=== PATIENT | male | born 1935 | race Caucasian/White ===

== ENCOUNTER 2016-09-25 05:41 | Inpatient (IN) | payer OTHER ==
--- NOTE | 2016-09-21 10:42 | GHP ---
[f rep st] PREOP HISTORY AND PHYSICAL DATE OF ADMISSION: He will be an a.m. admission for surgery at [facility] on September 25, 2016. PROBLEM LIST: Right hip severe degenerative arthritis. HISTORY OF PRESENT ILLNESS: The patient is a 81-year-old man admitted for right total knee arthroplasty. I did his left total knee arthroplasty in April of 2012. He has had an excellent result. Beginning in December of 2015 , he developed pain in his right knee. It has been persistent. His pain is aggravated by activity. If he tries to walk or bicycle, the pain is aggravated. He occasionally uses Aleve at night. The knee is stiff after prolonged sitting. He has tried 5 or 6 physical therapy sessions but they did not help. He has failed nonsurgical treatment and is admitted now for a right total knee arthroplasty. PAST MEDICAL HISTORY: He has had prostate cancer and bladder cancer. He also has esophageal reflux. He is treated for elevated cholesterol. CURRENT MEDICATIONS: Prilosec daily. Simvastatin 40 mg every other day. He takes a baby aspirin every day. He has stopped that in preparation for his surgery. DRUG ALLERGIES: None. METAL ALLERGY: None. LATEX ALLERGY: None. SOCIAL HISTORY: The patient is a [employer] professor. He does not smoke cigarettes and occasionally drinks alcohol. FAMILY HISTORY: Positive for cancer and heart disease. PHYSICAL EXAMINATION: GENERAL: He is a thin, alert, healthy-appearing elderly man. VITAL SIGNS: Height 6 feet. Weight 165 pounds. BMI 22.4. EYES: Conjunctivae and sclerae are clear. Pupils are round and reactive. MOUTH: Good oral hygiene. No loose teeth. CHEST: Clear. HEART: Regular rhythm. No murmurs. EXTREMITIES: Pertinent findings limited to his right knee. When standing, he has slight varus alignment. No effusion. He lacks a few degrees of full extension and flexes to 105 degrees. His collateral ligaments are stable. He is tender along the medial joint line. IMAGING: Films show severe medial compartment degenerative arthritis. He is bone on bone. Mild varus alignment. Peripheral osteophytes are present. His left total knee looks fine. IMPRESSION ON ADMISSION: 1. Right knee advanced degenerative arthritis. He is prepared for a right total knee arthroplasty. 2. Five years status post successful left total knee arthroplasty. 3. Treatment for elevated cholesterol and gastroesophageal reflux disease. 4. History of prostate and bladder cancer. PLAN: He will undergo a right total knee arthroplasty. The surgery has been described to him including the risks, complications, expectations, and recovery time. I have stressed the importance of postoperative physical therapy. I have advised him that with bilateral procedures there can be mild [id number] differences in the recovery and in the final result. I have counseled him that a small percentage of people do not get a good result with a total knee replacement. All his questions have been answered, and he consents to surgery. /[id number]/MODL MTDD
[2016-09-25] MEDS ORDERED: LIDOCAINE 1% 5 ML SDV ID PRN (06:14)
[2016-09-25] MEDS ORDERED: LR 1,000 ML IV ONE (06:14)
[2016-09-25] MEDS ORDERED: ceFAZolin 1 GM/5 ML SYR ONE ×2 (06:52→06:54)
[2016-09-25] MEDS ORDERED: VANCOMYCIN 1 GM VIAL ONE ×2 (06:53→06:54)
[2016-09-25] MEDS ORDERED: DEXAMETHASONE 4 MG/ML VIAL IVP ONE (07:00)
[2016-09-25] MEDS ORDERED: POVIDONE-IODINE 20 ML in SODIUM CL IRRIG SOLUTION 500 ML IRR ONE (07:00)
[2016-09-25] MEDS ORDERED: FAMOTIDINE 20 MG TAB PO ONE (07:00)
[2016-09-25] MEDS ORDERED: TRANEXAMIC ACID 780 MG in NS 100 ML IV ONE (07:00)
[2016-09-25] MEDS ORDERED: CHLORHEXIDINE GLUC HIBICLENS 118 ML BTL TP ONE (07:00)
[2016-09-25] MEDS ORDERED: ROPI/epiNEPH/KETOROLAC JOINT COCKTAIL IU ONE (07:00)
[2016-09-25] MEDS ORDERED: ACETAMINOPHEN 325 MG TAB PO ONE (07:00)
[2016-09-25] MEDS ORDERED: CEFAZOLIN 2 GM/DEXTR 100 ML IV ONE (07:00)
[2016-09-25] MEDS ORDERED: fentaNYL 100 MCG/2 ML INJ ONE ×2 (07:12→07:33)
[2016-09-25] MEDS ORDERED: PROPOFOL 200 MG/20 ML VIAL ONE (07:12)
[2016-09-25] MEDS ORDERED: PROPOFOL/EMULSION 500 MG/50 ML BOTTLE IV ONE (07:35)
[2016-09-25] MEDS ORDERED: GLYCOPYRROLATE 0.2 MG/1 ML VIAL ONE (08:00)
[2016-09-25] MEDS ORDERED: ONDANSETRON 4 MG/2 ML VIAL ONE (08:00)
[2016-09-25] MEDS ORDERED: DEXAMETHASONE 4 MG/ML VIAL ONE (08:00)
[2016-09-25] MEDS ORDERED: LIDOCAINE 2% 100 MG/5 ML SYR ONE (08:00)
[2016-09-25] MEDS ORDERED: ROPIVACAINE HCL 150 MG/30 ML INJ ONE (08:01)
--- NOTE | 2016-09-25 08:56 | POSTOPPROG ---
Post Op Note Date of Operation: 09/25/16 Surgeon: Yunior Trammell Nuclear Engineer: Sandi Anesthesiologist: Lebron Anesthesia: IV Sedation, Spinal Post-op Diagnosis: right knee arthritis Procedure: R TKA Inf/Abcess present in the surg proc area at time of surgery?: No EBL: 50-100 (add canal block)
[2016-09-25] MEDS ORDERED: DIPHENOXYLATE/ATROPINE LOMOTIL 1 TAB PO PRN (09:08)
[2016-09-25] MEDS ORDERED: ONDANSETRON DISINTEGRATING 4 MG TAB PO PRN (09:08)
[2016-09-25] MEDS ORDERED: diphenhydrAMINE 25 MG CAP PO PRN (09:08)
[2016-09-25] MEDS ORDERED: PHARMACY PAIN CONSULT 1 EA MISC PRN (09:08)
[2016-09-25] MEDS ORDERED: PROMETHAZINE HCL 25 MG SUPPR PR PRN (09:08)
[2016-09-25] MEDS ORDERED: CYCLOBENZAPRINE 10 MG TAB PO PRN (09:08)
[2016-09-25] MEDS ORDERED: MAGNESIUM HYDROXIDE 30 ML UDCUP PO PRN (09:08)
[2016-09-25] MEDS ORDERED: METOCLOPRAMIDE 10 MG/2 ML VIAL IVP PRN (09:08)
[2016-09-25] MEDS ORDERED: NS 500 ML IV PRN (09:08)
[2016-09-25] MEDS ORDERED: POLYETHYLENE GLYCOL 3350 17 GM PKT PO PRN (09:08)
[2016-09-25] MEDS ORDERED: BISACODYL 10 MG SUPP PR PRN (09:08)
[2016-09-25] MEDS ORDERED: ONDANSETRON 4 MG/2 ML VIAL IVP PRN (09:08)
[2016-09-25] MEDS ORDERED: LACTULOSE 20 GM/30 ML UDCUP PO PRN (09:08)
[2016-09-25] MEDS ORDERED: TEMAZEPAM 15 MG CAP PO PRN (09:08)
[2016-09-25] MEDS: KETOROLAC 30 MG/1 ML SDV IVP PRN (10:41)
[2016-09-25] MEDS: LR 1,000 ML IV SCH (10:41)
[2016-09-25] MEDS: oxyCODONE IR 5 MG TAB PO PRN ×3 (10:41→22:23)
--- NOTE | 2016-09-25 11:10 | GOP ---
[f rep st] OPERATIVE REPORT DATE OF OPERATION: 09/25/2016 SURGEON: Yunior Trammell MD AUTOMOTIVE SERVICE PROFESSIONAL: Bowen Figueroa, PAC, and Lawson Benavidez CFA. ANESTHESIA: A combination of Marcaine spinal, IV sedation, and adductor canal block. ANESTHESIOLOGIST: Carie Diana MD. PREOPERATIVE DIAGNOSIS: Right knee severe degenerative arthritis with varus deformity. POSTOPERATIVE DIAGNOSIS: Right knee severe degenerative arthritis with varus deformity. PROCEDURE PERFORMED: Right total knee arthroplasty, cemented, Miranda and Nephew Journey II, posterio r stabilized. FINDINGS: DESCRIPTION OF PROCEDURE: The patient was given 2 g of preoperative IV Ancef within 60 minutes of s urgery. He also received IV tranexamic acid at a dose of 10 mg/kg. He was placed on the operating room table and given spinal anesthesia with Marcaine by Dr. Diana. He was then placed supine and g iven IV sedation. A Maradiaga catheter was not used. He wore a DUC stocking and sequential compression device on the nonoperative leg. His right lower extremity was prepped with ChloraPrep from the upp er thigh tourniquet to the tips of the toes. It was draped free using sterile sheets, stockinette, and Ioban plastic adhesive drape. The right lower extremity was wrapped with compressive Coban. Th e leg was exsanguinated with elevation and a 6-inch compressive wrap, and the pneumatic tourniquet w as inflated to 275 mmHg. The [employer] time-out was performed to verify the correct patient identity and the correct surgical side. The [place] time-out was also performed. The [facility] leg holding device was sterilely attached to the operating room table and used throughou t the procedure to help position the knee. A straight midline incision was made, centered on the pa tella. Subcutaneous tissues were sharply divided and hemostasis was obtained using electrocautery. A medial subcutaneous flap was developed, and the capsule and synovium were opened in a medial parap atellar fashion. Extensive degenerative changes were present in the medial compartment and patellof emoral joint. The medial capsule and periosteum were elevated off the rim of the medial tibial plat eau, all the way around to the posteromedial corner. His medial collateral ligament was released en ough to balance the medial side of the knee. In order to improve exposure, the patella was prepared first. The original thickness of the patella was measured. Peripheral osteophytes were removed. I cut a flat surface on the back of the allyssa ramirez. It was sized for a 41 mm resurfacing component. I removed enough bone from the patella such kassandra t the remaining bone plus the thickness of the patellar component recreated the original thickness o f the patella. The composite thickness was 26 mm. The intramedullary alignment guide system was used to set up the distal femoral cut. The distal fem ur was cut in 5 degrees of valgus. Because of a 5 or 6 degree preoperative flexion contracture, I m farhad a +2 mm cut on the distal femur. The sizing jig was used to determine proper femoral sizing. I shifted the jig anteriorly 2 mm in order to accommodate a size 7 femoral component without notching the anterior cortex. The 5-in-1 cutting block was applied, and the anterior and posterior condylar cuts and chamfer cuts were made. The final jig was used to remove the central portion of the dista l femur to accommodate the posterior stabilized femoral component. I was careful to determine prope r rotation by referencing off Whitesides line. Each cut was checked for accuracy before and after i t was made. The femur was sized for a size 7 posterior stabilized component. The trial component w as tapped into place and was a good fit. Next, the tibia was prepared. The proximal tibial cut was made using the extramedullary alignment g uide system. The cut was made in a few degrees of posterior slope. I was careful to achieve proper varus/valgus alignment and proper rotation. The posterior compartment was cleared of meniscal remn ants. Osteophytes were removed from the back of his femoral condyles. I checked the flexion and ex tension gaps and they were equal, balanced, and rectangular. The tibia was sized for a size 6 component. With the trial components in place, I selected an 11 mm polyethylene posterior stabilized tibial insert. The knee came to full extension and flexed to 130 degrees. There was no overstuffing in flexion. The collateral ligaments were stable and balanced in 90 degrees of flexion and full extension. The trial patellar button was applied, and patellar tr acking was checked. Tracking was excellent without any digital pressure. 40 mL of the joint anesthetic cocktail was injected into the posterior capsule, the periarticular st ructures, the quadriceps muscle and tendon areas, and the subcutaneous tissues along the skin edges. A second dose of IV tranexamic acid was given at a dose of 10 mg/kg. The surfaces were prepared for cementing. They were carefully cleaned with the pulsating lavage irr igation and thoroughly dried. The CarboJet device was used to blow dry the cancellous surfaces. A double batch of high viscosity methylmethacrylate cement with 2 g of powdered vancomycin added was m ixed. While it was still in a semiliquid state, all [address] components were cemented in place. Excess ce ment was removed before it hardened. The 11 mm trial tibial insert was re-tried and was the proper thickness. The actual component was i nserted and locked into place. The knee was thoroughly irrigated 1 final time with a dilute Betadin e solution. The tourniquet was deflated and the total tourniquet time was 47 minutes. The vastus medialis portion of the extensor mechanism was repaired with several interrupted figure-o f-eight #2 FiberWire sutures. The capsule and synovium were closed first with multiple interrupted hqgzvz-rn-[id number] 0 PDS sutures, followed by a running #2 barbed Ethicon Stratafix PDO suture. The [place] bcutaneous tissues were closed with a running 0 barbed Ethicon Stratafix Monoderm suture. The skin was closed with a running 3-0 barbed Ethicon Stratafix Monoderm subcuticular suture. The skin was s ealed with half-inch Steri-Strips. The wound was covered with Xeroform gauze and flat 4 x 4's, and the knee was wrapped with Kerlix and 6-inch compressive wrap. A long-leg DUC stocking and SCD were applied followed by the cooling device. The patient wore a stocking and SCD on the opposite leg dur ing the procedure. I used a size 7 cemented Miranda and Nephew Oxinium posterior stabilized femoral component, a size 6 c emented tibial base plate, an 11 mm posterior stabilized tibial insert, and a 41 mm cemented round a ll-polyethylene resurfacing patellar component. The estimated blood loss following inflation of the tourniquet was 100 cc or less. The sponge and needle count were correct on 2 occasions. The patient was awakened from anesthesia, [facility] and taken to PACU i n satisfactory condition. There were no recognized intraoperative complications. In the recovery room, for additional postoperative pain control, Dr. Diana performed an adductor ca nal block. Thiago Figueroa and Lawson Benavidez acted as surgical assistants. Their assistance was a daniel lugo. /[id number]/MODL
[2016-09-25] MEDS: ACETAMINOPHEN 325 MG TAB PO SCH ×3 (12:06→22:22)
[2016-09-25] MEDS: ceFAZolin 2 GM/DEXTROSE 100 ML IV SCH ×2 (15:36→22:22)
[2016-09-25] MEDS: TRANEXAMIC ACID 650 MG TAB PO SCH ×2 (15:36→22:23)
[2016-09-25] MEDS ORDERED: NON-FORMULARY NEW DRUG (Simvastatin [Zocor 40 Mg] 40 MG) PO SCH (18:30)
[2016-09-25] MEDS: FAMOTIDINE 20 MG TAB PO SCH (22:23)
[2016-09-25] MEDS: SENNOSIDES/DOCUSATE SODIUM TAB PO SCH (22:23)
[2016-09-25] MEDS: ASPIRIN 325 MG TAB PO SCH (22:24)
[2016-09-26] MEDS ORDERED: NS 500 ML IV ONE (00:30)
[2016-09-26] MEDS: LR 1,000 ML IV SCH (01:12)
[2016-09-26] MEDS: traMADol 50 MG TAB PO PRN ×2 (05:11→13:35)
[2016-09-26] MEDS: ACETAMINOPHEN 325 MG TAB PO SCH ×2 (05:11→13:35)
[2016-09-26] MEDS: KETOROLAC 30 MG/1 ML SDV IVP PRN (05:11)
[2016-09-26 05:13] LABS: HEMATOCRIT 33.7 % (40.0-51.0); HEMOGLOBIN 11.3 g/dL (13.7-17.5)
[2016-09-26 08:11] VITALS: BP 106/59; PULSE 40; RESP 16; TEMP 98.1; O2SAT 91
[2016-09-26] MEDS ORDERED: NON-FORMULARY NEW DRUG (Omeprazole [Prilosec 20 Mg] 20 MG) PO SCH (09:00)
[2016-09-26] MEDS ORDERED: MULTIVITAMINS 1 EACH TAB PO SCH (09:00)
[2016-09-26] MEDS ORDERED: CALCIUM CARB W/VIT D 500 MG TAB PO SCH (09:00)
[2016-09-26] MEDS ORDERED: PANTOPRAZOLE SODIUM 40 MG TAB PO SCH (09:00)
--- NOTE | 2016-09-26 09:24 | SOAPPROG ---
SOAP Progress Note Assessment/Plan: Assessment: Afebrile. Mild pain. Awake and alert. Walked in room yesterday. Dsg is dry. Mod swelling. Films look good. H/H is good. Plan: PT today. Home later today. 09/26/16 09:23 Objective: Vital Signs Temp Pulse Resp BP Pulse Ox 36.7 C 40 L 16 106/59 L 91 L 09/26/16 08:00 09/26/16 08:00 09/26/16 08:00 09/26/16 08:00 09/26/16 08:00 Laboratory Results 09/26/16 04:13 09/25/16 09/26/16 09/27/16 05:59 05:59 05:59 Intake Total 4712 Output Total 8235 325 Balance 3207 -325 ICD10 Worksheet Patient Problems: Problems Problem Status Onset Osteoarthritis of right knee Acute
--- NOTE | 2016-09-26 09:25 | PDIAF ---
- Diagnosis Diagnosis: right knee OA Code Status: Full Code - Medication Management Discharge Medications: Medications to Continue on Transfer Simvastatin [Zocor 40 mg] 40 mg PO Q2D@1830 04/01/12 [Last Taken 09/24/16] Calcium Carb W/Vit D [Calcium Carb W/Vit D 500/200 (*)] 500 mg PO DAILY [Last Taken 09/19/16] Multivitamins [Multivitamin (*)] 1 each PO DAILY 09/05/16 [Last Taken 09/19/16] Omeprazole [Prilosec 20 mg] 20 mg PO DAILY 09/05/16 [Last Taken 09/25/16 04:45] Acetaminophen [Tylenol 325mg (*)] 650 mg PO Q6HRS #0 tab 09/26/16 [Last Taken Unknown] Aspirin [Aspirin 325 mg (*)] 325 mg PO DAILY #21 tab 09/26/16 [Last Taken Unknown] Ondansetron Odt [Zofran Odt 4 mg (*)] 4 mg PO Q4HRS PRN #0 tab 09/26/16 [Last Taken Unknown] oxyCODONE IR [Oxycodone Ir (*)] 5 - 10 mg PO Q3HRS PRN #0 tab 09/26/16 [Last Taken Unknown] traMADol [Ultram 50 mg (*)] 50 mg PO Q6HRS PRN #0 tab 09/26/16 [Last Taken Unknown] Discharge Medications: Refer to the Discharge Home Medication list for PRN reason. - Orders Services needed: Home Care, Physical Therapy Home Care Face to Face: I certify that this patient was under my care and that I had the required [id number]-[id number] encounter meeting the encounter requirements on the discharge day. My findings support the fact that the patient is homebound as defined in CMS Chapter 7 Medicare Benefits Manual 30.1.1, The condition of the patient is such that there exists a normal inability to leave home and consequently, leaving home would require a considerable and taxing effort. Diet Recommendation: no restrictions on diet Diet Texture: Regular Texture Diet Maradiaga: Not applicable Tani Stockings Discontinue Date: 1 week Wound Care Instructions: keep clean and dry. You may shower. Activity/Weight Bearing Restrictions: as tolerated - Follow Up Care Current Providers and Referrals: Cas Nixon MD [Primary Care Provider] - Yunior Trammell MD [Medical Doctor] - 10/04/16 11:15 am
--- NOTE | 2016-09-26 09:53 | GDS ---
[f rep st] DISCHARGE SUMMARY ADMISSION DIAGNOSIS: Right knee severe degenerative arthritis with varus deformity. DISCHARGE DIAGNOSIS: Right knee severe degenerative arthritis with varus deformity. OPERATION PERFORMED: 09/25/2016, right total knee arthroplasty. POSTOPERATIVE COMPLICATIONS: None. CONDITION ON DISCHARGE: Improved. DESCRIPTION OF HOSPITAL COURSE: The patient was admitted to the hospital on the morning of surgery. His admission CBC was normal. The same day, under combination of spinal anesthesia, IV sedation, and adductor canal block, he underwent a right total knee arthroplasty. Postoperatively, he was kristie ated with multimodal DVT prophylaxis, including aspirin and early mobilization. He was seen by [facility] and made good progress with ambulation and stairs. On the first postoperative day, his hemoglobin and hematocrit were 11.3 and 33.7. By the time of discharge, he was afebrile, and he wa s independent walking. DISPOSITION: The patient was discharged to his home. He will have home physical therapy. Continue aspirin 325 mg p.o. daily for 21 days. He may progress to full weightbearing as tolerated. Use TE D stockings for 1 week. He has prescriptions for oxycodone and tramadol for pain control. I will s ee him back in the office on 10/04/2016. If any problems, he is to call me at the office. /[id number]/MODL
[2016-09-26] MEDS: TRANEXAMIC ACID 650 MG TAB PO SCH (10:24)
[2016-09-26] MEDS: FAMOTIDINE 20 MG TAB PO SCH (10:25)
[2016-09-26] MEDS: SENNOSIDES/DOCUSATE SODIUM TAB PO SCH (10:26)
[2016-09-26] MEDS: ASPIRIN 325 MG TAB PO SCH (10:26)
[2016-09-26] MEDS ORDERED: ATORVASTATIN CALCIUM 20 MG TAB PO SCH (18:30)
== END 2016-09-26 13:56 | disposition home health service (06) | DRG 470 ==
LOC: F3N 05:41
PROVIDERS: ADMIT Orthopaedic Surgery; ATTEND Orthopaedic Surgery
PROC: 0SRC0J9 Replacement of Right Knee Joint with Synthetic Substitute, Cemented, Open Approach (ICD-10-PCS; principal; 2016-09-25 07:15)
DX: M17.11 Unilateral primary osteoarthritis, right knee (principal); M21.161 Varus deformity, not elsewhere classified, right knee; E78.5 Hyperlipidemia, unspecified; K21.9 Gastro-esophageal reflux disease without esophagitis; Z85.46 Personal history of malignant neoplasm of prostate; Z85.51 Personal history of malignant neoplasm of bladder; Z96.652 Presence of left artificial knee joint
CPT/HCPCS: 97116-GP; 97161-GP; 97165-GO; 97530-GP; C1713; G8978-GP-CJ; G8979-GP-CI; G8980-GP-CI; G8987-GO-CI; G8988-GO-CI; G8989-GO-CI; J0171; J0690; J1100; J1885; J2001; J2405; J2704; J2795; J3010; J3370